=== PATIENT | female | born 1970 | race Caucasian/White ===

== ENCOUNTER 2017-06-19 20:30 | Emergency (ER) | payer OTHER ==
[2017-06-19 22:17] VITALS: BP 156/89
== END 2017-06-19 22:17 | disposition home or self-care (01) ==
LOC: ED 20:30
DX: K11.8 Other diseases of salivary glands (principal); J45.909 Unspecified asthma, uncomplicated; I10 Essential (primary) hypertension; E11.9 Type 2 diabetes mellitus without complications; Z79.84 Long term (current) use of oral hypoglycemic drugs